=== PATIENT | male | born 1940 | race African-American/Black ===

== ENCOUNTER 2017-07-10 07:27 | Inpatient (IN) | payer OTHER, MEDICAID ==
[~2017-07-10] VITALS: Ht 182.9 cm; Wt 94.3 kg
[2017-07-10] MEDS ORDERED: SODIUM CHLORIDE 0.9% 1,000 ML IV ONE (07:49)
[2017-07-10] MEDS ORDERED: LORAZEPAM 2MG/ML CPJ IM ONE (08:15)
[2017-07-10] MEDS ORDERED: MAGNESIUM/ALUMINUM HYDROXIDE/SIMETHICONE 30ML UDC PO ONE (08:15)
[2017-07-10 08:48] LABS: INR 1.1; PROTHROMBIN TIME 11.7 sec (9.4-11.6)
[2017-07-10 08:49] LABS: BASOPHILS % 0.3 % (0.0-2.0); EOSINOPHILS % 0.6 % (0.0-5.0); HEMATOCRIT. 42.8 % (42.0-52.0); HEMOGLOBIN. 14.1 g/dL (14.0-18.0); LYMPHOCYTES % 7.5 % (20.0-50.0); MEAN CORPUSCULAR HEMOGLOBIN 28.1 pg (28.0-32.0); MEAN CORPUSCULAR VOLUME 85.6 fL (80.0-94.0); MEAN PLATELET VOLUME 7.6 fl (7.4-10.4); MONOCYTES % 12.6 % (2.0-8.0); PLATELET 267 x1000/uL (130-400); RED CELL DISTRIBUTION WIDTH 16.7 % (11.6-14.6)
[2017-07-10 08:54] LABS: CARBON DIOXIDE 27 mEq/L (21-32); CHLORIDE 105 mEq/L (98-107); ETHANOL BLOOD < 10 mg/dL
[2017-07-10 08:59] LABS: TROPONIN I 0.03 ng/mL (0.00-0.04)
[2017-07-10] MEDS ORDERED: FUROSEMIDE 20MG/2ML VIAL IVP ONE (09:15)
[2017-07-10 10:24] LABS: CLARITY URINE CLOUDY (CLEAR); COLOR URINE YELLOW (YELLOW); GLUCOSE URINE NEGATIVE (NEGATIVE); KETONES URINE NEGATIVE (NEGATIVE); LEUKOCYTE ESTERASE URINE 3+ (NEGATIVE); NITRITE URINE POSITIVE (NEGATIVE); OCCULT BLOOD URINE TRACE (NEGATIVE); PROTEIN URINE NEGATIVE (NEGATIVE); SPECIFIC GRAVITY URINE 1.016 (1.005-1.030); UROBILINOGEN URINE 0.2 E.U./dL (0.2-1.0)
[2017-07-10 10:40] LABS: *AMPHETAMINES SCREEN URINE NEGATIVE (NEGATIVE); *BARBITURATES SCREEN URINE NEGATIVE (NEGATIVE); *BENZODIAZEPINES SCREEN URINE NEGATIVE (NEGATIVE); *COCAINE SCREEN URINE NEGATIVE (NEGATIVE); CANNABINOID URINE SCREEN NEGATIVE (NEGATIVE); METHADONE URINE SCREEN NEGATIVE (NEGATIVE); OPIATES URINE SCREEN NEGATIVE (NEGATIVE); PHENCYCLIDINE URINE SCREEN NEGATIVE (NEGATIVE)
[2017-07-10] MEDS ORDERED: CEFTRIAXONE 1 G PREMIX 50 ML IV ONE (11:15)
[2017-07-10 16:30] VITALS: BP 98/56
[2017-07-10 20:00] VITALS: BP 114/77
[2017-07-10] MEDS ORDERED: ONDANSETRON HCL 4MG/2ML VIAL IV PRN (21:00)
[2017-07-10] MEDS: DEXT 5%/0.45% NACL 1000ML 1,000 ML IV SCH (22:43)
[2017-07-10] MEDS: FAMOTIDINE 20MG TABLET PO SCH (22:44)
[2017-07-11] VITALS: BP 135/79
[2017-07-11 04:00] VITALS: BP 110/75
[2017-07-11 06:37] LABS: BASOPHILS % 0.4 % (0.0-2.0); EOSINOPHILS % 1.7 % (0.0-5.0); HEMATOCRIT. 37.9 % (42.0-52.0); HEMOGLOBIN. 12.5 g/dL (14.0-18.0); LYMPHOCYTES % 8.4 % (20.0-50.0); MEAN CORPUSCULAR HEMOGLOBIN 28.5 pg (28.0-32.0); MEAN CORPUSCULAR VOLUME 86.3 fL (80.0-94.0); MEAN PLATELET VOLUME 8.2 fl (7.4-10.4); MONOCYTES % 2.9 % (2.0-8.0); NEUTROPHILS % 86.6 % (40.0-76.0); PLATELET 206 x1000/uL (130-400); RED CELL DISTRIBUTION WIDTH 16.7 % (11.6-14.6)
[2017-07-11 06:53] LABS: AMMONIA 16 uMol/L (<32)
[2017-07-11 07:00] LABS: CARBON DIOXIDE 28 mEq/L (21-32); CHLORIDE 106 mEq/L (98-107)
[2017-07-11 08:00] VITALS: BP 119/76
[2017-07-11] MEDS: DIPHENHYDRAMINE 25MG CAPSULE PO PRN ×2 (08:35→17:42)
[2017-07-11] MEDS: FAMOTIDINE 20MG TABLET PO SCH ×2 (08:36→20:37)
[2017-07-11] MEDS: ASPIRIN 81MG TABLET PO SCH (08:36)
[2017-07-11] MEDS: CYCLOBENZAPRINE 10MG TABLET PO PRN (08:39)
[2017-07-11] MEDS: DEXT 5%/0.45% NACL 1000ML 1,000 ML IV SCH ×2 (10:56→22:53)
[2017-07-11 12:00] VITALS: BP 106/65
[2017-07-11] MEDS ORDERED: LEVOFLOXACIN 500MG PREMIX 100 ML IV SCH (14:00)
[2017-07-11] MEDS ORDERED: LORAZEPAM 2MG/ML CPJ IV PRN (14:30)
[2017-07-11 20:00] VITALS: BP 121/72
[2017-07-12] VITALS: BP 126/74
[2017-07-12 04:00] VITALS: BP 116/77
[2017-07-12 07:30] VITALS: BP 120/63
[2017-07-12] MEDS: FAMOTIDINE 20MG TABLET PO SCH ×2 (08:33→21:29)
[2017-07-12] MEDS: ASPIRIN 81MG TABLET PO SCH (08:33)
[2017-07-12] MEDS: CYCLOBENZAPRINE 10MG TABLET PO PRN ×2 (08:34→21:29)
[2017-07-12 12:00] VITALS: BP 126/71
[2017-07-12] MEDS: DEXT 5%/0.45% NACL 1000ML 1,000 ML IV SCH (13:00)
[2017-07-12] MEDS: NITROFURANTOIN 100MG M/M CAPSULE PO SCH ×2 (15:00→23:58)
[2017-07-12 15:44] VITALS: BP 135/81
[2017-07-12 20:00] VITALS: BP 99/73
[2017-07-12] MEDS: MAGNESIUM/ALUMINUM HYDROXIDE/SIMETHICONE 30ML UDC PO PRN (21:32)
[2017-07-12] MEDS: DIPHENHYDRAMINE 25MG CAPSULE PO PRN (22:19)
[2017-07-13] VITALS: BP 117/75
[2017-07-13 04:00] VITALS: BP 111/75
[2017-07-13 08:00] VITALS: BP 115/68
[2017-07-13] MEDS: NITROFURANTOIN 100MG M/M CAPSULE PO SCH ×2 (10:17→20:09)
[2017-07-13] MEDS: CYCLOBENZAPRINE 10MG TABLET PO PRN ×2 (10:17→20:09)
[2017-07-13] MEDS: FAMOTIDINE 20MG TABLET PO SCH ×2 (10:17→20:09)
[2017-07-13] MEDS: ASPIRIN 81MG TABLET PO SCH (10:20)
[2017-07-13] MEDS: DIPHENHYDRAMINE 25MG CAPSULE PO PRN ×2 (10:38→20:09)
[2017-07-13 12:00] VITALS: BP 112/71
[2017-07-13 16:00] VITALS: BP 119/71
[2017-07-13] MEDS: DEXT 5%/0.45% NACL 1000ML 1,000 ML IV SCH (20:00)
[2017-07-13] MEDS: MAGNESIUM/ALUMINUM HYDROXIDE/SIMETHICONE 30ML UDC PO PRN (20:17)
[2017-07-14 04:00] VITALS: BP 131/84
[2017-07-14 08:00] VITALS: BP 128/86
[2017-07-14] MEDS: ASPIRIN 81MG TABLET PO SCH (08:27)
[2017-07-14] MEDS: FAMOTIDINE 20MG TABLET PO SCH ×2 (08:27→21:47)
[2017-07-14] MEDS: NITROFURANTOIN 100MG M/M CAPSULE PO SCH ×2 (08:27→21:47)
[2017-07-14 12:00] VITALS: BP 126/78
[2017-07-14] MEDS: CYCLOBENZAPRINE 10MG TABLET PO PRN ×2 (13:35→21:47)
[2017-07-14] MEDS: DEXT 5%/0.45% NACL 1000ML 1,000 ML IV SCH (13:58)
[2017-07-14 16:00] VITALS: BP 115/78
[2017-07-14] MEDS: MAGNESIUM/ALUMINUM HYDROXIDE/SIMETHICONE 30ML UDC PO PRN (16:39)
[2017-07-14] MEDS: DIPHENHYDRAMINE 25MG CAPSULE PO PRN (18:20)
[2017-07-14 20:00] VITALS: BP 120/78
[2017-07-15] VITALS: BP 136/82
[2017-07-15 04:00] VITALS: BP 132/69
[2017-07-15 08:22] VITALS: BP 89/52
[2017-07-15] MEDS: DIPHENHYDRAMINE 25MG CAPSULE PO PRN ×2 (08:31→20:43)
[2017-07-15] MEDS: FAMOTIDINE 20MG TABLET PO SCH ×2 (08:31→20:43)
[2017-07-15] MEDS: ASPIRIN 81MG TABLET PO SCH (08:31)
[2017-07-15] MEDS: NITROFURANTOIN 100MG M/M CAPSULE PO SCH ×2 (08:31→20:43)
[2017-07-15 11:59] VITALS: BP 110/61
[2017-07-15] MEDS: CYCLOBENZAPRINE 10MG TABLET PO PRN ×2 (19:02→20:43)
[2017-07-15 20:00] VITALS: BP 119/83
[2017-07-15] MEDS: MAGNESIUM/ALUMINUM HYDROXIDE/SIMETHICONE 30ML UDC PO PRN (20:43)
[2017-07-16] VITALS (8 sets, daily range): BP systolic 66–134; BP diastolic 27–87
[2017-07-16] MEDS: ASPIRIN 81MG TABLET PO SCH (09:00)
[2017-07-16] MEDS: NITROFURANTOIN 100MG M/M CAPSULE PO SCH ×2 (09:11→20:35)
[2017-07-16] MEDS: FAMOTIDINE 20MG TABLET PO SCH ×2 (09:11→20:36)
[2017-07-16] MEDS: CYCLOBENZAPRINE 10MG TABLET PO PRN (09:13)
[2017-07-16] MEDS ORDERED: MAGNESIUM HYDROXIDE 400MG/5ML 30ML UDC PO NR (11:30)
[2017-07-16] MEDS ORDERED: NA PHOS,M-B/NA PHOS,DI-BA ENEMA 118ML PR NR (11:40)
[2017-07-16] MEDS ORDERED: GUAIFENESIN/CODEINE 100-10MG/5ML UDC PO PRN (11:45)
[2017-07-16] MEDS: DOCUSATE SODIUM 100MG CAPSULE PO SCH ×2 (11:47→17:53)
[2017-07-16] MEDS: GUAIFENESIN 200MG/10ML SUGAR FREE UDC PO PRN (11:47)
[2017-07-16] MEDS: TRAMADOL 50MG TABLET PO PRN (16:39)
[2017-07-16] MEDS: DIPHENHYDRAMINE 25MG CAPSULE PO PRN (17:53)
[2017-07-17] VITALS (7 sets, daily range): BP systolic 99–125; BP diastolic 63–80
[2017-07-17] MEDS: NITROFURANTOIN 100MG M/M CAPSULE PO SCH ×2 (08:08→21:51)
[2017-07-17] MEDS: DOCUSATE SODIUM 100MG CAPSULE PO SCH ×2 (08:08→17:00)
[2017-07-17] MEDS: FAMOTIDINE 20MG TABLET PO SCH ×2 (08:08→21:51)
[2017-07-17] MEDS: CYCLOBENZAPRINE 10MG TABLET PO PRN (08:08)
[2017-07-17] MEDS: ASPIRIN 81MG TABLET PO SCH (08:08)
[2017-07-17] MEDS: GUAIFENESIN 200MG/10ML SUGAR FREE UDC PO PRN (09:20)
[2017-07-17] MEDS: MAGNESIUM/ALUMINUM HYDROXIDE/SIMETHICONE 30ML UDC PO PRN (18:44)
[2017-07-18 08:00] VITALS: BP 125/67
[2017-07-18] MEDS: FAMOTIDINE 20MG TABLET PO SCH ×2 (09:00→20:54)
[2017-07-18] MEDS: ASPIRIN 81MG TABLET PO SCH (09:00)
[2017-07-18] MEDS: NITROFURANTOIN 100MG M/M CAPSULE PO SCH ×2 (10:21→20:54)
[2017-07-18] MEDS: DOCUSATE SODIUM 100MG CAPSULE PO SCH ×2 (10:22→17:40)
[2017-07-18] MEDS: TRAMADOL 50MG TABLET PO PRN ×2 (10:28→20:54)
[2017-07-18] MEDS: MAGNESIUM/ALUMINUM HYDROXIDE/SIMETHICONE 30ML UDC PO PRN (10:29)
[2017-07-18] MEDS: DIPHENHYDRAMINE 25MG CAPSULE PO PRN (15:00)
[2017-07-18 16:00] VITALS: BP 115/66
[2017-07-18] MEDS: GUAIFENESIN 200MG/10ML SUGAR FREE UDC PO PRN (20:54)
[2017-07-19 04:00] VITALS: BP 111/80
[2017-07-19 08:00] VITALS: BP 115/74
[2017-07-19] MEDS: FAMOTIDINE 20MG TABLET PO SCH ×2 (09:00→21:13)
[2017-07-19] MEDS: DOCUSATE SODIUM 100MG CAPSULE PO SCH ×2 (09:00→17:00)
[2017-07-19] MEDS: CYCLOBENZAPRINE 10MG TABLET PO PRN (09:39)
[2017-07-19] MEDS: NITROFURANTOIN 100MG M/M CAPSULE PO SCH ×2 (09:39→21:13)
[2017-07-19] MEDS: ASPIRIN 81MG TABLET PO SCH (09:39)
[2017-07-19] MEDS: TRAMADOL 50MG TABLET PO PRN (09:54)
[2017-07-19] MEDS: GUAIFENESIN 200MG/10ML SUGAR FREE UDC PO PRN (10:11)
[2017-07-19 20:00] VITALS: BP 131/92
[2017-07-20] VITALS: BP 121/70
[2017-07-20 04:00] VITALS: BP 120/89
[2017-07-20 08:00] VITALS: BP 121/85
[2017-07-20] MEDS: ASPIRIN 81MG TABLET PO SCH (09:36)
[2017-07-20] MEDS: FAMOTIDINE 20MG TABLET PO SCH ×2 (09:36→21:00)
[2017-07-20] MEDS: DOCUSATE SODIUM 100MG CAPSULE PO SCH ×2 (09:36→17:00)
[2017-07-20 12:14] VITALS: BP 127/73
[2017-07-20] MEDS: GUAIFENESIN 200MG/10ML SUGAR FREE UDC PO PRN (18:30)
[2017-07-20 20:00] VITALS: BP 137/83
[2017-07-21] VITALS: BP 113/74
[2017-07-21] MEDS: MAGNESIUM/ALUMINUM HYDROXIDE/SIMETHICONE 30ML UDC PO PRN ×2 (03:07→20:58)
[2017-07-21 08:00] VITALS: BP 117/85
[2017-07-21] MEDS: FAMOTIDINE 20MG TABLET PO SCH ×2 (08:44→20:58)
[2017-07-21] MEDS: DOCUSATE SODIUM 100MG CAPSULE PO SCH ×2 (08:44→17:00)
[2017-07-21] MEDS: ASPIRIN 81MG TABLET PO SCH (08:44)
[2017-07-21] MEDS: TRAMADOL 50MG TABLET PO PRN (08:47)
[2017-07-21 12:06] VITALS: BP 118/74
[2017-07-21] MEDS ORDERED: LACTULOSE 20G/30ML UDC PO NR (13:00)
[2017-07-21] MEDS: DIPHENHYDRAMINE 25MG CAPSULE PO PRN (14:39)
[2017-07-21] MEDS: GUAIFENESIN 200MG/10ML SUGAR FREE UDC PO PRN (14:39)
[2017-07-21 20:00] VITALS: BP 128/82
[2017-07-21] MEDS: CYCLOBENZAPRINE 10MG TABLET PO PRN (20:58)
[2017-07-22] MEDS: DIPHENHYDRAMINE 25MG CAPSULE PO PRN ×2 (00:11→09:42)
[2017-07-22 04:00] VITALS: BP 105/70
[2017-07-22 08:00] VITALS: BP 116/73
[2017-07-22] MEDS: ASPIRIN 81MG TABLET PO SCH (09:00)
[2017-07-22] MEDS: FAMOTIDINE 20MG TABLET PO SCH ×3 (09:32→20:58)
[2017-07-22] MEDS: DOCUSATE SODIUM 100MG CAPSULE PO SCH ×2 (09:32→16:00)
[2017-07-22] MEDS: MAGNESIUM/ALUMINUM HYDROXIDE/SIMETHICONE 30ML UDC PO PRN (16:01)
[2017-07-22] MEDS: TRAMADOL 50MG TABLET PO PRN ×2 (16:01→22:48)
[2017-07-22 20:00] VITALS: BP 116/76
[2017-07-23] VITALS: BP 122/77
[2017-07-23 08:00] VITALS: BP 127/79
[2017-07-23] MEDS: DOCUSATE SODIUM 100MG CAPSULE PO SCH ×2 (10:37→18:32)
[2017-07-23] MEDS: FAMOTIDINE 20MG TABLET PO SCH ×2 (10:37→22:10)
[2017-07-23] MEDS: ASPIRIN 81MG TABLET PO SCH (10:39)
[2017-07-23 11:55] VITALS: BP 109/67
[2017-07-23] MEDS: MAGNESIUM/ALUMINUM HYDROXIDE/SIMETHICONE 30ML UDC PO PRN (14:20)
[2017-07-23] MEDS: CYCLOBENZAPRINE 10MG TABLET PO PRN (18:35)
[2017-07-23 20:00] VITALS: BP 126/81
[2017-07-24] VITALS: BP 119/61
[2017-07-24 08:00] VITALS: BP 123/81
[2017-07-24] MEDS: FAMOTIDINE 20MG TABLET PO SCH ×2 (08:39→20:52)
[2017-07-24] MEDS: DOCUSATE SODIUM 100MG CAPSULE PO SCH ×2 (08:40→17:00)
[2017-07-24] MEDS: ASPIRIN 81MG TABLET PO SCH (08:40)
[2017-07-24 12:00] VITALS: BP 98/64
[2017-07-24 16:00] VITALS: BP 100/61
[2017-07-24] MEDS: TRAMADOL 50MG TABLET PO PRN (18:49)
[2017-07-24 20:00] VITALS: BP 130/84
[2017-07-24] MEDS: GUAIFENESIN 200MG/10ML SUGAR FREE UDC PO PRN (20:52)
[2017-07-24] MEDS: MAGNESIUM/ALUMINUM HYDROXIDE/SIMETHICONE 30ML UDC PO PRN (20:52)
[2017-07-25] VITALS: BP 127/80
[2017-07-25 04:00] VITALS: BP 136/85
[2017-07-25] MEDS: GUAIFENESIN 200MG/10ML SUGAR FREE UDC PO PRN (06:41)
[2017-07-25 08:00] VITALS: BP 132/82
[2017-07-25] MEDS: ASPIRIN 81MG TABLET PO SCH (08:43)
[2017-07-25] MEDS: DOCUSATE SODIUM 100MG CAPSULE PO SCH ×2 (08:43→17:00)
[2017-07-25] MEDS: FAMOTIDINE 20MG TABLET PO SCH ×3 (08:44→23:39)
[2017-07-25] MEDS: DIPHENHYDRAMINE 25MG CAPSULE PO PRN (08:47)
[2017-07-25 12:00] VITALS: BP 112/74
[2017-07-25 16:00] VITALS: BP 131/84
[2017-07-26 08:00] VITALS: BP 108/67
[2017-07-26] MEDS: FAMOTIDINE 20MG TABLET PO SCH ×4 (08:36→21:16)
[2017-07-26] MEDS: DOCUSATE SODIUM 100MG CAPSULE PO SCH ×3 (08:36→17:00)
[2017-07-26] MEDS: ASPIRIN 81MG TABLET PO SCH ×2 (08:36→08:40)
[2017-07-26 12:00] VITALS: BP 111/65
[2017-07-26] MEDS: MAGNESIUM/ALUMINUM HYDROXIDE/SIMETHICONE 30ML UDC PO PRN ×2 (12:59→21:21)
[2017-07-26] MEDS: GUAIFENESIN 200MG/10ML SUGAR FREE UDC PO PRN ×2 (12:59→21:23)
[2017-07-26 16:14] VITALS: BP 109/61
[2017-07-26 20:00] VITALS: BP 109/66
[2017-07-27 04:00] VITALS: BP 117/75
[2017-07-27] MEDS: GUAIFENESIN 200MG/10ML SUGAR FREE UDC PO PRN ×3 (04:30→19:40)
[2017-07-27 08:00] VITALS: BP 126/78
[2017-07-27] MEDS: ASPIRIN 81MG TABLET PO SCH (09:00)
[2017-07-27] MEDS: FAMOTIDINE 20MG TABLET PO SCH ×3 (09:00→21:27)
[2017-07-27] MEDS: DIPHENHYDRAMINE 25MG CAPSULE PO PRN ×3 (09:14→16:59)
[2017-07-27] MEDS: DOCUSATE SODIUM 100MG CAPSULE PO SCH ×2 (09:15→17:00)
[2017-07-27] MEDS: CYCLOBENZAPRINE 10MG TABLET PO PRN ×2 (09:26→14:05)
[2017-07-27 12:00] VITALS: BP 131/78
[2017-07-27 16:00] VITALS: BP 131/76
[2017-07-28] VITALS: BP 130/77
[2017-07-28 03:54] VITALS: BP 114/67
[2017-07-28 08:00] VITALS: BP 113/70
[2017-07-28] MEDS: ASPIRIN 81MG TABLET PO SCH (08:34)
[2017-07-28] MEDS: MAGNESIUM/ALUMINUM HYDROXIDE/SIMETHICONE 30ML UDC PO PRN ×2 (08:35→20:22)
[2017-07-28] MEDS: GUAIFENESIN 200MG/10ML SUGAR FREE UDC PO PRN ×2 (08:35→18:49)
[2017-07-28] MEDS: FAMOTIDINE 20MG TABLET PO SCH ×2 (08:35→20:23)
[2017-07-28] MEDS: DOCUSATE SODIUM 100MG CAPSULE PO SCH ×2 (08:35→16:58)
[2017-07-28 12:00] VITALS: BP 114/71
[2017-07-28 16:00] VITALS: BP 114/66
[2017-07-28] MEDS: CYCLOBENZAPRINE 10MG TABLET PO PRN ×2 (17:03→20:23)
[2017-07-28 20:00] VITALS: BP 127/85
[2017-07-28] MEDS: DIPHENHYDRAMINE 25MG CAPSULE PO PRN (20:23)
[2017-07-29] VITALS: BP 118/72
[2017-07-29 04:00] VITALS: BP 109/73
[2017-07-29] MEDS: GUAIFENESIN 200MG/10ML SUGAR FREE UDC PO PRN ×3 (04:17→20:10)
[2017-07-29] MEDS: ASPIRIN 81MG TABLET PO SCH (07:58)
[2017-07-29] MEDS: FAMOTIDINE 20MG TABLET PO SCH ×2 (07:58→20:02)
[2017-07-29] MEDS: DOCUSATE SODIUM 100MG CAPSULE PO SCH ×3 (07:59→16:17)
[2017-07-29 08:00] VITALS: BP 132/83
[2017-07-29] MEDS: CYCLOBENZAPRINE 10MG TABLET PO PRN ×2 (13:28→20:02)
[2017-07-29 20:00] VITALS: BP 119/66
[2017-07-29] MEDS: MAGNESIUM/ALUMINUM HYDROXIDE/SIMETHICONE 30ML UDC PO PRN (20:02)
[2017-07-30] VITALS: BP_SYST 121; BP_SYST 142; BP_DIAS 65; BP_DIAS 91
[2017-07-30 04:00] VITALS: BP 122/76
[2017-07-30] MEDS: GUAIFENESIN 200MG/10ML SUGAR FREE UDC PO PRN ×3 (05:22→20:54)
[2017-07-30] MEDS: MAGNESIUM/ALUMINUM HYDROXIDE/SIMETHICONE 30ML UDC PO PRN ×2 (05:22→20:54)
[2017-07-30 08:00] VITALS: BP 123/86
[2017-07-30] MEDS: ASPIRIN 81MG TABLET PO SCH ×2 (09:00→09:27)
[2017-07-30] MEDS: FAMOTIDINE 20MG TABLET PO SCH ×2 (09:00→20:54)
[2017-07-30] MEDS: DOCUSATE SODIUM 100MG CAPSULE PO SCH ×2 (09:00→17:00)
[2017-07-30 12:00] VITALS: BP 132/78
[2017-07-30 16:00] VITALS: BP 129/82
[2017-07-30 20:00] VITALS: BP 130/82
[2017-07-30] MEDS: DIPHENHYDRAMINE 25MG CAPSULE PO PRN (20:54)
[2017-07-31] MEDS: GUAIFENESIN 200MG/10ML SUGAR FREE UDC PO PRN ×2 (03:24→20:26)
[2017-07-31 08:00] VITALS: BP 120/78
[2017-07-31] MEDS: ASPIRIN 81MG TABLET PO SCH (09:00)
[2017-07-31] MEDS: FAMOTIDINE 20MG TABLET PO SCH ×2 (09:00→20:26)
[2017-07-31] MEDS: DOCUSATE SODIUM 100MG CAPSULE PO SCH ×2 (09:00→17:00)
[2017-07-31 12:00] VITALS: BP 118/80
[2017-07-31] MEDS: CYCLOBENZAPRINE 10MG TABLET PO PRN (13:43)
[2017-07-31] MEDS: DIPHENHYDRAMINE 25MG CAPSULE PO PRN (13:43)
[2017-07-31 16:00] VITALS: BP 120/82
[2017-07-31 20:00] VITALS: BP 126/89
[2017-08-01] VITALS: BP 119/79
[2017-08-01 04:00] VITALS: BP 103/67
[2017-08-01] MEDS: DOCUSATE SODIUM 100MG CAPSULE PO SCH ×2 (08:32→17:22)
[2017-08-01] MEDS: FAMOTIDINE 20MG TABLET PO SCH ×2 (08:32→20:09)
[2017-08-01] MEDS: ASPIRIN 81MG TABLET PO SCH (08:32)
[2017-08-01] MEDS: GUAIFENESIN 200MG/10ML SUGAR FREE UDC PO PRN ×2 (11:32→17:26)
[2017-08-01] MEDS: CYCLOBENZAPRINE 10MG TABLET PO PRN (11:34)
[2017-08-01 12:00] VITALS: BP 112/80
[2017-08-01 15:58] VITALS: BP 119/78
[2017-08-01] MEDS: DIPHENHYDRAMINE 25MG CAPSULE PO PRN (17:26)
[2017-08-01 20:00] VITALS: BP 121/79
[2017-08-01] MEDS: MAGNESIUM/ALUMINUM HYDROXIDE/SIMETHICONE 30ML UDC PO PRN (20:07)
[2017-08-02] VITALS: BP 118/71
[2017-08-02 04:00] VITALS: BP 106/72
[2017-08-02] MEDS: GUAIFENESIN 200MG/10ML SUGAR FREE UDC PO PRN ×3 (04:54→21:48)
[2017-08-02] MEDS: MAGNESIUM/ALUMINUM HYDROXIDE/SIMETHICONE 30ML UDC PO PRN (04:54)
[2017-08-02] MEDS: DOCUSATE SODIUM 100MG CAPSULE PO SCH ×2 (08:15→17:00)
[2017-08-02] MEDS: ASPIRIN 81MG TABLET PO SCH (08:15)
[2017-08-02] MEDS: FAMOTIDINE 20MG TABLET PO SCH ×2 (08:15→21:48)
[2017-08-02 20:00] VITALS: BP 122/84
[2017-08-03] VITALS: BP 126/76
[2017-08-03 04:00] VITALS: BP 122/65
[2017-08-03 08:00] VITALS: BP 114/73
[2017-08-03] MEDS: FAMOTIDINE 20MG TABLET PO SCH ×2 (09:00→21:30)
[2017-08-03] MEDS: DOCUSATE SODIUM 100MG CAPSULE PO SCH ×2 (09:00→17:00)
[2017-08-03] MEDS: ASPIRIN 81MG TABLET PO SCH (09:00)
[2017-08-03] MEDS: MAGNESIUM/ALUMINUM HYDROXIDE/SIMETHICONE 30ML UDC PO PRN ×2 (12:31→21:31)
[2017-08-03 20:00] VITALS: BP 120/79
[2017-08-03] MEDS: GUAIFENESIN 200MG/10ML SUGAR FREE UDC PO PRN (21:31)
[2017-08-04] VITALS: BP 113/92
[2017-08-04] MEDS: FAMOTIDINE 20MG TABLET PO SCH ×2 (09:27→21:00)
[2017-08-04] MEDS: DOCUSATE SODIUM 100MG CAPSULE PO SCH ×2 (09:27→17:07)
[2017-08-04] MEDS: ASPIRIN 81MG TABLET PO SCH (09:27)
[2017-08-04] MEDS: DIPHENHYDRAMINE 25MG CAPSULE PO PRN ×2 (10:10→18:14)
[2017-08-04 16:00] VITALS: BP 109/66
[2017-08-04] MEDS: GUAIFENESIN 200MG/10ML SUGAR FREE UDC PO PRN (17:08)
[2017-08-05 01:20] VITALS: BP 131/82
[2017-08-05] MEDS: GUAIFENESIN 200MG/10ML SUGAR FREE UDC PO PRN ×2 (06:48→18:01)
[2017-08-05] MEDS: DOCUSATE SODIUM 100MG CAPSULE PO SCH ×2 (09:00→17:00)
[2017-08-05] MEDS: ASPIRIN 81MG TABLET PO SCH (09:00)
[2017-08-05] MEDS: FAMOTIDINE 20MG TABLET PO SCH ×2 (09:00→21:00)
[2017-08-05] MEDS: MAGNESIUM/ALUMINUM HYDROXIDE/SIMETHICONE 30ML UDC PO PRN (18:01)
[2017-08-05] MEDS: DIPHENHYDRAMINE 25MG CAPSULE PO PRN (18:35)
[2017-08-05 20:00] VITALS: BP 111/70
[2017-08-06] MEDS: GUAIFENESIN 200MG/10ML SUGAR FREE UDC PO PRN ×2 (09:06→21:07)
[2017-08-06] MEDS: ASPIRIN 81MG TABLET PO SCH (09:06)
[2017-08-06] MEDS: DOCUSATE SODIUM 100MG CAPSULE PO SCH ×2 (09:06→17:00)
[2017-08-06] MEDS: FAMOTIDINE 20MG TABLET PO SCH ×2 (09:06→21:07)
[2017-08-06] MEDS: DIPHENHYDRAMINE 25MG CAPSULE PO PRN (09:18)
[2017-08-06 12:00] VITALS: BP 109/66
[2017-08-06 16:00] VITALS: BP 115/69
[2017-08-06 20:00] VITALS: BP 114/67
[2017-08-06] MEDS: CYCLOBENZAPRINE 10MG TABLET PO PRN (21:07)
[2017-08-06] MEDS: MAGNESIUM/ALUMINUM HYDROXIDE/SIMETHICONE 30ML UDC PO PRN (21:07)
[2017-08-07 04:00] VITALS: BP 112/78
[2017-08-07] MEDS: GUAIFENESIN 200MG/10ML SUGAR FREE UDC PO PRN ×3 (06:21→17:27)
[2017-08-07] MEDS: MAGNESIUM/ALUMINUM HYDROXIDE/SIMETHICONE 30ML UDC PO PRN (06:21)
[2017-08-07] MEDS: ASPIRIN 81MG TABLET PO SCH (09:00)
[2017-08-07] MEDS: DOCUSATE SODIUM 100MG CAPSULE PO SCH ×2 (09:00→17:26)
[2017-08-07] MEDS: FAMOTIDINE 20MG TABLET PO SCH ×2 (09:00→21:00)
[2017-08-07 12:00] VITALS: BP 127/79
[2017-08-07 16:00] VITALS: BP 127/82
[2017-08-07] MEDS: DIPHENHYDRAMINE 25MG CAPSULE PO PRN (17:40)
[2017-08-07 20:00] VITALS: BP 114/74
[2017-08-08] VITALS: BP 106/64
[2017-08-08] MEDS ORDERED: CYCLOBENZAPRINE 10MG TABLET PO PRN (02:00)
[2017-08-08] MEDS ORDERED: DIPHENHYDRAMINE 25MG CAPSULE PO PRN (02:15)
[2017-08-08] MEDS: GUAIFENESIN 200MG/10ML SUGAR FREE UDC PO PRN ×4 (02:17→22:57)
[2017-08-08 04:00] VITALS: BP 104/68
[2017-08-08 08:00] VITALS: BP 116/79
[2017-08-08] MEDS: DOCUSATE SODIUM 100MG CAPSULE PO SCH ×2 (09:00→17:00)
[2017-08-08] MEDS: ASPIRIN 81MG TABLET PO SCH (09:35)
[2017-08-08 16:00] VITALS: BP 114/65
[2017-08-08] MEDS: ACETAMINOPHEN 325MG TABLET PO PRN (17:11)
[2017-08-08] MEDS: DIPHENHYDRAMINE 25MG CAPSULE PO PRN ×2 (17:16→23:00)
[2017-08-08 20:00] VITALS: BP 108/71
[2017-08-08] MEDS: MAGNESIUM/ALUMINUM HYDROXIDE/SIMETHICONE 30ML UDC PO PRN (22:57)
[2017-08-09] VITALS: BP 112/67
[2017-08-09 08:00] VITALS: BP 122/75
[2017-08-09] MEDS: DOCUSATE SODIUM 100MG CAPSULE PO SCH ×2 (09:00→17:00)
[2017-08-09] MEDS: GUAIFENESIN 200MG/10ML SUGAR FREE UDC PO PRN ×2 (11:19→16:11)
[2017-08-09] MEDS: ACETAMINOPHEN 325MG TABLET PO PRN (11:19)
[2017-08-09] MEDS: DIPHENHYDRAMINE 25MG CAPSULE PO PRN (11:19)
[2017-08-09 12:00] VITALS: BP 113/74
[2017-08-09] MEDS: MAGNESIUM/ALUMINUM HYDROXIDE/SIMETHICONE 30ML UDC PO PRN (16:10)
[2017-08-09 20:00] VITALS: BP 107/67
[2017-08-10] VITALS: BP 115/77
[2017-08-10 04:00] VITALS: BP 121/76
[2017-08-10] MEDS: DOCUSATE SODIUM 100MG CAPSULE PO SCH ×2 (09:00→17:00)
[2017-08-10] MEDS: MAGNESIUM/ALUMINUM HYDROXIDE/SIMETHICONE 30ML UDC PO PRN (10:59)
[2017-08-10] MEDS: GUAIFENESIN 200MG/10ML SUGAR FREE UDC PO PRN ×2 (10:59→20:35)
[2017-08-10] MEDS: ACETAMINOPHEN 325MG TABLET PO PRN ×2 (11:03→20:40)
[2017-08-10] MEDS: DIPHENHYDRAMINE 25MG CAPSULE PO PRN ×2 (11:03→20:35)
[2017-08-10 12:00] VITALS: BP 121/80
[2017-08-10 20:00] VITALS: BP 121/69
[2017-08-11 04:00] VITALS: BP 114/76
[2017-08-11] MEDS: GUAIFENESIN 200MG/10ML SUGAR FREE UDC PO PRN ×3 (05:50→21:06)
[2017-08-11] MEDS: DIPHENHYDRAMINE 25MG CAPSULE PO PRN ×2 (05:51→14:05)
[2017-08-11] MEDS: ACETAMINOPHEN 325MG TABLET PO PRN ×2 (05:51→13:17)
[2017-08-11 08:00] VITALS: BP 116/77
[2017-08-11] MEDS: DOCUSATE SODIUM 100MG CAPSULE PO SCH ×2 (09:00→17:00)
[2017-08-11 16:00] VITALS: BP 112/74
[2017-08-11 20:00] VITALS: BP 114/84
[2017-08-11] MEDS: MAGNESIUM/ALUMINUM HYDROXIDE/SIMETHICONE 30ML UDC PO PRN (21:09)
== END 2017-08-11 21:50 | DRG 689 ==
LOC: ER 07:58 → 5WST 09:19 → EDBD 09:19 → EDBEDREQ 09:22 → ENRESERV 15:21 → 6EST 08-03 22:45
PROVIDERS: ADMIT Hospitalist; ATTEND Hospitalist
DX: N39.0 Urinary tract infection, site not specified (principal); G92 Toxic encephalopathy; R65.10 Systemic inflammatory response syndrome (SIRS) of non-infectious origin without acute organ dysfunction; I50.9 Heart failure, unspecified; F03.90 Unspecified dementia, unspecified severity, without behavioral disturbance, psychotic disturbance, mood disturbance, and anxiety; F17.200 Nicotine dependence, unspecified, uncomplicated; Z99.3 Dependence on wheelchair; Z59.0 Homelessness
CPT/HCPCS: 36415; 70450; 71010; 73610; 80053; 80305; 81001; 82140; 83605; 83690; 83880; 84484; 85025; 85610; 87040; 87077; 87086; 87186; 93005; 96365; 96372; 96375; 97162; 97530; 99291; A6261; G0482; J0696; J1940; J1956; J2060; J2405; J3490; J7030; J7042; Q0163